=== PATIENT | female | born 1960 | race Caucasian/White ===

== ENCOUNTER 2017-05-13 09:06 | Day surgery (SDC) | payer OTHER ==
[2017-05-13] MEDS ORDERED: FENTAnyl 50 MCG/ML VIAL (10:57)
[2017-05-13] MEDS ORDERED: MIDAZOLAM 1 MG/ML 2 ML INJ ×2 (10:57)
== END 2017-05-13 13:35 | disposition home or self-care (01) ==
LOC: GIL 09:06
DX: Z12.11 Encounter for screening for malignant neoplasm of colon (principal); D12.6 Benign neoplasm of colon, unspecified; K64.8 Other hemorrhoids; I10 Essential (primary) hypertension
CPT/HCPCS: 45380; 88305